=== PATIENT | male | born 1980 | race Caucasian/White ===

== ENCOUNTER 2025-02-23 15:47 | Emergency (ER) | payer SELFPAY ==
[~2025-02-23] VITALS: Ht 167.6 cm; Wt 91.0 kg
[2025-02-23 16:06] VITALS: O2SAT 99
[2025-02-23] MEDS: KETOROLAC 30MG/ML VIAL IM STA (17:08)
[2025-02-23 17:41] LABS: CLARITY URINE CLEAR (CLEAR); COLOR URINE YELLOW (YELLOW); GLUCOSE URINE NEGATIVE (NEGATIVE); KETONES URINE NEGATIVE (NEGATIVE); LEUKOCYTE ESTERASE URINE NEGATIVE (NEGATIVE); NITRITE URINE NEGATIVE (NEGATIVE); OCCULT BLOOD URINE NEGATIVE (NEGATIVE); PH URINE 5.5 (4.5-8.0); PROTEIN URINE NEGATIVE (NEGATIVE); SPECIFIC GRAVITY URINE 1.025 (1.005-1.030); UROBILINOGEN URINE 0.2 E.U./dL (0.2-1.0)
[2025-02-23] MEDS: ACETAMINOPHEN 500MG TABLET PO ONE (17:52)
[2025-02-23] MEDS ORDERED: TAMS-54 MT (17:53)
[2025-02-23] MEDS ORDERED: IBUP-2030 MT (17:53)
[2025-02-23 18:10] VITALS: BP 115/78; PULSE 75; RESP 18; TEMP 36.7; O2SAT 98
== END 2025-02-23 18:11 | disposition home or self-care (01) ==
LOC: ER 15:47
DX: N20.0 Calculus of kidney (principal)
CPT/HCPCS: 74176; 81003; 99284